=== PATIENT | female | born 1990 | race Caucasian/White ===

== ENCOUNTER 2017-10-14 07:57 | Emergency (ER) | payer OTHER, SELFPAY ==
[2017-10-14] MEDS ORDERED: Dexamethasone 4 mg/ml Vial ONE (08:12)
== END 2017-10-14 08:17 | disposition home or self-care (01) ==
LOC: BURERS 07:57
DX: T63.441A Toxic effect of venom of bees, accidental (unintentional), initial encounter (principal); F41.9 Anxiety disorder, unspecified
CPT/HCPCS: 99282; J1100